=== PATIENT | female | born 1970 | race Caucasian/White ===

== ENCOUNTER → 2018-07-06 | Outpatient (CLI) | payer OTHER ==
[~2018-07-06] MED LIST: IOPAMIDOL (ISOVUE-300) 100 ML BTL ONE
== END ==
LOC: FIMAGING 14:47
DX: Z15.89 Genetic susceptibility to other disease (principal); Z84.89 Family history of other specified conditions
CPT/HCPCS: Q9967

== ENCOUNTER → 2018-07-11 | Outpatient (CLI) | payer OTHER ==
[~2018-07-11] MED LIST changes: +GADOBUTROL 10 ML VIAL IVP ONE; -IOPAMIDOL (ISOVUE-300) 100 ML BTL ONE
== END ==
LOC: FIMAGING 15:33
DX: Z15.89 Genetic susceptibility to other disease (principal); Z84.89 Family history of other specified conditions
CPT/HCPCS: A9585

== ENCOUNTER → 2018-07-14 | Outpatient (CLI) | payer OTHER | LOC: FIMAGING 11:56 | DX: Z12.9 Encounter for screening for malignant neoplasm, site unspecified (principal); Z15.89 Genetic susceptibility to other disease; Z84.89 Family history of other specified conditions | CPT/HCPCS: A9585 ==